=== PATIENT | male | born 1960 | race Caucasian/White ===

== ENCOUNTER 2021-09-28 17:21 | Inpatient (IN) | payer OTHER ==
[~2021-09-28] VITALS: Ht 193 cm; Wt 159.2 kg
[2021-09-28 18:40] LABS: HEMOGLOBIN 14.9 gm/dl (14.0-17.5); RED BLOOD COUNT 4.72 M/UL (4.20-5.50); WHITE BLOOD COUNT 8.9 K/UL (4.5-11.0)
[2021-09-28 19:17] LABS: BUN/CREATININE RATIO 35 (0-10)
[2021-09-29 05:12] LABS: HEMOGLOBIN 13.3 gm/dl (14.0-17.5)
[2021-09-29 05:13] LABS: RED BLOOD COUNT 4.14 M/UL (4.20-5.50); WHITE BLOOD COUNT 15.8 K/UL (4.5-11.0)
[2021-09-29 05:22] LABS: BUN/CREATININE RATIO 36 (0-10)
[2021-09-29 05:41] LABS: ACINETOBACTER BAUMANNII Not Detected (Negative); CANDIDA ALBICANS Not Detected (Negative); CANDIDA KRUSEI Not Detected (Negative); CANDIDA TROPICALIS Not Detected (Negative); ENTEROCOCCUS Not Detected (Negative); ESCHERICHIA COLI Not Detected (Negative); HAEMOPHILUS INFLUENZAE Not Detected (Negative); KLEBSIELLA OXYTOCA Not Detected (Negative); KLEBSIELLA PNEUMONIAE Not Detected (Negative); KPC-CARBAPENEM-RESISTANCE GENE Not Detected (Negative); PROTEUS Not Detected (Negative); PSEUDOMONAS AERUGINOSA Not Detected (Negative); SERRATIA MARCESANS Not Detected (Negative); STREP AGALACTIAE (GROUP B) Not Detected (Negative); STREP PYOGENES (GROUP A) Not Detected (Negative); vanA/B (VANCOMYCIN RESIST GENE Not Detected (Negative)
[2021-09-29 08:17] LABS: mecA (METHICILLIN RESIST GENE DETECTED (Negative)
[2021-09-29 08:18] LABS: STAPHYLOCOCCUS DETECTED (Negative); STAPHYLOCOCCUS AUREUS DETECTED (Negative); STREPTOCOCCUS DETECTED (Negative)
[2021-09-29] MEDS ORDERED: VITAMIN C500 M4 PO (09:33)
[2021-09-29] MEDS ORDERED: VITAMIN D325 MC6 PO (09:34)
[2021-09-29] MEDS ORDERED: ZINC50 M2 PO (09:34)
[2021-09-29] MEDS ORDERED: QUERCETIN PO (09:36)
[2021-09-30 05:19] LABS: HEMOGLOBIN 12.5 gm/dl (14.0-17.5); RED BLOOD COUNT 4.03 M/UL (4.20-5.50); WHITE BLOOD COUNT 11.9 K/UL (4.5-11.0)
[2021-09-30 06:03] LABS: BUN/CREATININE RATIO 35 (0-10)
[2021-10-01 03:09] LABS: HEMOGLOBIN 12.8 gm/dl (14.0-17.5); RED BLOOD COUNT 4.08 M/UL (4.20-5.50)
[2021-10-01 03:29] LABS: BUN/CREATININE RATIO 27 (0-10)
[2021-10-01 09:51] LABS: HEMOGLOBIN 12.8 gm/dl (14.0-17.5); RED BLOOD COUNT 4.1 M/UL (4.20-5.50); WHITE BLOOD COUNT 10.4 K/UL (4.5-11.0)
[2021-10-02 03:13] LABS: HEMOGLOBIN 11.8 gm/dl (14.0-17.5); RED BLOOD COUNT 3.86 M/UL (4.20-5.50); WHITE BLOOD COUNT 12.3 K/UL (4.5-11.0)
[2021-10-03 03:35] LABS: HEMOGLOBIN 10.9 gm/dl (14.0-17.5); RED BLOOD COUNT 3.49 M/UL (4.20-5.50); WHITE BLOOD COUNT 11.5 K/UL (4.5-11.0)
[2021-10-04 03:11] LABS: HEMOGLOBIN 10.6 gm/dl (14.0-17.5); RED BLOOD COUNT 3.45 M/UL (4.20-5.50); WHITE BLOOD COUNT 11.3 K/UL (4.5-11.0)
[2021-10-05 03:38] LABS: HEMOGLOBIN 9.6 gm/dl (14.0-17.5); RED BLOOD COUNT 3.13 M/UL (4.20-5.50); WHITE BLOOD COUNT 9.7 K/UL (4.5-11.0)
[2021-10-08 03:16] LABS: HEMOGLOBIN 10.4 gm/dl (14.0-17.5); RED BLOOD COUNT 3.38 M/UL (4.20-5.50)
[2021-10-08 03:18] LABS: WHITE BLOOD COUNT 12.2 K/UL (4.5-11.0)
[2021-10-08] MEDS ORDERED: LANTUS INS100 UTS/M1 SQ (11:14)
[2021-10-08] MEDS ORDERED: MYCOSTATIN100000 UTS PO (11:14)
[2021-10-08] MEDS ORDERED: LOPRESSOR 25 MG25 MG PO (11:14)
[2021-10-08] MEDS ORDERED: DOCUSATE SODIU100 MG PO (11:14)
[2021-10-08] MEDS ORDERED: ZYVOX600 MG PO (11:14)
[2021-10-08] MEDS ORDERED: ASPIRIN EC81 MG PO (11:14)
[2021-10-08] MEDS ORDERED: METOPROLOL SUCC25 MG PO (11:34)
== END 2021-10-08 20:30 | DRG 853 ==
LOC: ER1 17:21 → CDU 21:03 → PROG CARE 21:03 → CDU 23:57 → PROG CARE 10-01 09:00
PROVIDERS: Emergency Medicine; Internal Medicine; Internal Medicine Infectious Disease; Internal Medicine Nephrology; Surgery; ADMIT Internal Medicine
PROC: B24BZZZ Ultrasonography of Heart with Aorta (ICD-10-PCS; 2021-09-29)
PROC: 0Y6N0Z0 Detachment at Left Foot, Complete, Open Approach (ICD-10-PCS; principal; 2021-09-29 00:30)
PROC: 0QBK0ZZ Excision of Left Fibula, Open Approach (ICD-10-PCS; 2021-10-01)
PROC: 0QBH0ZZ Excision of Left Tibia, Open Approach (ICD-10-PCS; 2021-10-01)
DX: A41.02 Sepsis due to Methicillin resistant Staphylococcus aureus (principal); A48.0 Gas gangrene; N17.0 Acute kidney failure with tubular necrosis; Z20.822 Contact with and (suspected) exposure to COVID-19; L03.116 Cellulitis of left lower limb; E87.2 Acidosis; E87.1 Hypo-osmolality and hyponatremia; L02.416 Cutaneous abscess of left lower limb; E11.52 Type 2 diabetes mellitus with diabetic peripheral angiopathy with gangrene; N39.0 Urinary tract infection, site not specified; I08.1 Rheumatic disorders of both mitral and tricuspid valves; I27.20 Pulmonary hypertension, unspecified; E11.65 Type 2 diabetes mellitus with hyperglycemia; R65.20 Severe sepsis without septic shock; E66.9 Obesity, unspecified; I48.0 Paroxysmal atrial fibrillation; E86.0 Dehydration; E86.1 Hypovolemia; M72.8 Other fibroblastic disorders; Z79.01 Long term (current) use of anticoagulants; Z79.4 Long term (current) use of insulin; Z83.3 Family history of diabetes mellitus; Z91.011 Allergy to milk products; Z68.39 Body mass index [BMI] 39.0-39.9, adult; Z87.440 Personal history of urinary (tract) infections
CPT/HCPCS: ECHO; 36415; 51702; 73620; 73700; 80048; 80053; 80202; 81001; 82550; 82570; 82962; 83036; 83540; 83550; 83605; 83735; 84133; 84156; 84300; 84439; 84443; 85025; 85027; 85652; 86140; 87040; 87070; 87077; 87086; 87150; 87186; 87205; 89050; 93306; 96374; 96375; 97110; 97110-GP-CQ; 97161; 97166; 97530; 97530-GP-CQ; 99284; J0295; J0690; J1100; J1170; J1650; J2001; J2020; J2250; J2370; J2405; J2543; J2704; J2710; J3010; J3370; J7030; J7050; J7070; J7120; P9047; U0002